=== PATIENT | female | born 1985 | race American Indian/Alaskan Native ===

== ENCOUNTER 2019-03-09 09:00 | Emergency (ER) | payer MEDICAID, OTHER ==
[2019-03-09 09:01] VITALS: BMI 25.7
[2019-03-09 09:20] VITALS: RESP 18; TEMP 98.2
--- NOTE | 2019-03-09 09:32 | ED PDOC ---
Arrival/HPI - General Historian: Patient - History of Present Illness Narrative History of Present Illness (Text): 03/09/19 09:28 34 yo female w/ PMH of levoscoliosis, Mei-Danlos syndrome, epilepsy, depression, anxiety, insomnia, hypercholesterolemia, chronic migraines, and as thma presents to the ED for evaluation of upper and lower back pain s/p fall on March 07. Patient states that her pain has progressively increased and caused her to wake up in the morning in tears due to the pain. Patient states the pain is a 10/10, described as sharp with a component of dullness at times, radiating to her b/l legs when she walks. Patient states she takes baclofen and ibuprofen at home for her chronic home medications. Patient states this pain is usually chronic in nature due to her history of levoscoliosis and Mei-Danlos but wants to be sure that she did not fracture anything after the fall. Patient denies fevers, chills, chest pain, sob, n/v, constipation or diarrhea, decreased sensation, weakness in any extremities. Time/Duration: Prior to Arrival Symptom Onset: Gradual Symptom Course: Worsening Quality: Aching, Dullness Severity Level: 10 Activities at Onset: Other Context: Home <Waldemar Perez - Last Filed: 03/09/19 10:24> <Quoc Monterroso - Last Filed: 03/09/19 12:14> - General Chief Complaint: Back Pain Time Seen by Provider: 03/09/19 09:25 Past Medical History - Provider Review Nursing Documentation Reviewed: Yes - Patient History Narrative Patient History: levoscoliosis, epilepsy, depression, anxiety, insomnia, hypercholesterolemia, chronic migraines, asthma, Mei-Danlos syndrome - Infectious Disease Hx of Infectious Diseases: None - Tetanus Immunization Tetanus Immunization: Unknown - Reproductive Menopause: No Currently : Unknown - Cardiac Hx Cardiac Disorders: No - Pulmonary Hx Respiratory Disorders: No - Neurological Hx Neurological Disorder: No Hx Seizures: Yes - Musculoskeletal/Rheumatological Hx Arthritis: Yes (and scoliosis) Hx Back Pain: Yes - Gastrointestinal Hx Gastrointestinal Disorders: No - Genitourinary/Gynecological Hx Genitourinary Disorders: No - Psychiatric Hx Anxiety: Yes Hx Depression: Yes Hx Emotional Abuse: No Hx Physical Abuse: No Hx Substance Use: No - Surgical History Hx Orthopedic Surgery: Yes (LT [facility]) - Anesthesia Hx Anesthesia: No - Suicidal Assessment Feels Threatened In Home Enviroment: No <Chris,Madaser - Last Filed: 03/09/19 10:24> Family/Social History - Physician Review Nursing Documentation Reviewed: Yes Family/Social History: No Known Family HX Smoking Status: Unknown If Ever Smoked Hx Alcohol Use: No Hx Substance Use: No Hx Substance Use Treatment: No <Chris,Madaser - Last Filed: 03/09/19 10:24> Allergies/Home Meds <Chris,Madaser - Last Filed: 03/09/19 10:24> <Bosompem,Quoc - Last Filed: 03/09/19 12:14> Allergies/Adverse Reactions: Allergies No Known Allergies Allergy (Verified 02/01/13 18:31) Home Medications: Home Meds Medication Instructions Recorded Confirmed Buspirone HCl [Buspirone] 5 mg PO 02/01/13 02/01/13 Citalopram Hydrobromide [Celexa] 40 mg PO 02/01/13 02/01/13 Trazodone Hydrochloride [Trazodone 150 mg PO 02/01/13 02/01/13 HCl] Review of Systems - Physician Review All systems were reviewed & negative as marked: Yes - Review of Systems Constitutional: Normal. absent: Fatigue, Fevers Eyes: Normal ENT: Normal Respiratory: Normal. absent: SOB, Cough Cardiovascular: Normal. absent: Chest Pain, Palpitations Gastrointestinal: Normal. absent: Abdominal Pain, Constipation, Diarrhea Musculoskeletal: Back Pain Skin: Normal. absent: Rash, Skin Lesions Neurological: Normal. absent: Headache, Dizziness Psychiatric: Normal. absent: Anxiety, Depression <Chris,Madaser - Last Filed: 03/09/19 10:24> Physical Exam Vital Signs Reviewed: Yes Vital Signs Temp Pulse Resp BP Pulse Ox 03/09/19 09:20 98.2 F 85 18 115/87 100 03/09/19 09:16 98 F 76 18 115/86 99 Temperature: Afebrile Blood Pressure: Normal Pulse: Regular Respiratory Rate: Normal Appearance: Positive for: Well-Appearing, Non-Toxic, Comfortable Pain Distress: Mild Mental Status: Positive for: Alert and Oriented X 3 - Systems Exam Head: Present: Atraumatic, Normocephalic Pupils: Present: PERRL Extroacular Muscles: Present: EOMI Conjunctiva: Present: Normal Mouth: Present: Moist Mucous Membranes Neck: Present: Normal Range of Motion. No: JVD Respiratory/Chest: Present: Clear to Auscultation, Good Air Exchange. No: Respiratory Distress, Accessory Muscle Use Cardiovascular: Present: Regular Rate and Rhythm, Normal S1, S2. No: Murmurs Abdomen: Present: Normal Bowel Sounds. No: Tenderness, Distention Back: Present: Normal Inspection, Midline Tenderness Upper Extremity: Present: Normal Inspection Lower Extremity: Present: Normal Inspection Neurological: Present: GCS=15, CN II-XII Intact, Speech Normal Skin: Present: Warm, Dry, Normal Color Psychiatric: Present: Alert, Oriented x 3, Normal Insight <ChrisMadaser - Last Filed: 03/09/19 10:24> Vital Signs Temp Pulse Resp BP Pulse Ox 03/09/19 09:20 98.2 F 85 18 115/87 100 03/09/19 09:16 98 F 76 18 115/86 99 <BosLaurent santiagoyl - Last Filed: 03/09/19 12:14> Medical Decision Making ED Course and Treatment: 03/09/19 09:43 Impression 34 yo female w/ PMH of levoscoliosis, Ehler-Danlos syndrome, anxiety, depression, insomnia, hypercholesterolemia, chronic migraines, and asthma presents for evaluation of back pain s/p fall 3 days ago. Plan -urine test -xray of lumbar spine Prior Visits 02/01/13: for RIGHT sided and RIGHT lateral neck pain Progress Notes Xray of Lumbar spine- No acute abnormalities as reviewed by resident and ED physician Will discharge with lidoderm patch, flexeril and naproxen 03/09/19 10:22 - RAD Interpretation Narrative RAD Interpretations (Text): 03/09/19 10:22 Lumbar Spine AP/Lateral Xray: no acute abnormalities as seen by resident physician and attending Straightening Press Operator Helper: ED Physician - Transfer of Care Pending Radiology Studies:: xray of lumbar spine and urine <Chris,Madaser - Last Filed: 03/09/19 10:24> ED Course and Treatment: 03/09/19 12:14 Patient Seen with Resident: In agreement with resident note which contains more details about the patient. Patient seen and evaluated with resident. Came up with plan and treatment together. - RAD Interpretation Radiology Orders: 03/09/19 09:32 LS SPINE AP/LAT [RAD] Stat - Medication Orders Current Medication Orders: Discontinued Medications Ibuprofen (Motrin Tab) 600 mg PO STAT STA Stop: 03/09/19 10:22 Lidocaine (Lidoderm) 1 ea TD ONCE ONE Stop: 03/09/19 10:22 <Quoc Monterroso - Last Filed: 03/09/19 12:14> - PA / OVERHEAD CRANE TECHNICIAN / Resident Statement / has reviewed & agrees with the documentation as recorded. / has examined the patient and agrees with the treatment plan. <Quoc Monterroso - Last Filed: 03/09/19 12:14> Disposition/Present on Arrival - Present on Arrival Any Indicators Present on Arrival: No History of DVT/PE: No History of Uncontrolled Diabetes: No Urinary Catheter: No History of Decub. Ulcer: No History Surgical Site Infection Following: None - Disposition Have Diagnosis and Disposition been Completed?: Yes Disposition Time: 10:25 <Waldemar Perez - Last Filed: 03/09/19 10:24> - Disposition Patient Plan: Discharge <Quoc Monterroso - Last Filed: 03/09/19 12:14> - Disposition Diagnosis: Back pain, Fall Disposition: HOME/ ROUTINE Condition: STABLE Discharge Instructions (ExitCare): Upper Back Pain (DC) Print Language: PU[place] R[place] Additional Instructions: Please follow up with your PCP in 1 week Please take medications prescribed as needed for pain Prescriptions: Cyclobenzaprine [Cyclobenzaprine HCl] 10 mg PO Q6H #10 tab Lidocaine 5% [Lidoderm] 4 % TP Q12H #6 patch Naproxen 500 mg PO BID #10 tab Referrals: Jacqueline Causey [Primary Care Provider] - Follow up with primary Forms: [employer] ([place]), WORK NOTE
[2019-03-09] MEDS ORDERED: Lidocaine 5% Patch TD ONE (10:21)
[2019-03-09 10:56] VITALS: BP 122/70; PULSE 76; O2SAT 99
--- NOTE | 2019-03-09 11:07 | RAD ---
Date of service: 03/09/2019 PROCEDURE: Radiographs of the Lumbar Spine. HISTORY: back pain s/p fall COMPARISON: No prior. TECHNIQUE: 5 views obtained. FINDINGS: BONES: There is straightening of the lumbar spine DISC SPACES: Unremarkable. OTHER FINDINGS: None. IMPRESSION: Unremarkable radiographs of the lumbar spine.
== END 2019-03-09 11:05 | disposition home or self-care (01) ==
LOC: ED 09:00
DX: M54.5 Low back pain (principal); E78.00 Pure hypercholesterolemia, unspecified; G40.909 Epilepsy, unspecified, not intractable, without status epilepticus; G47.00 Insomnia, unspecified; Q79.6 Ehlers-Danlos syndromes